=== PATIENT | female | born 1965 | race Caucasian/White ===

== ENCOUNTER 2021-02-08 17:52 | Observation (INO) | payer MEDICARE ==
[2021-02-08 18:19] LABS: CHLORIDE,CL 86 mEq/L (98-106)
[2021-02-08 18:20] LABS: SODIUM,NA 123 mEq/L (136-145)
[2021-02-08 18:44] LABS: CORONAVIRUS COVID-19 NAA NEGATIVE (NEGATIVE)
[2021-02-08] MEDS ORDERED: Albuterol/Ipratropium 3.0-0.5 MG/3 ML Neb Soln NEB ONE (18:46)
--- NOTE | 2021-02-08 18:54 | EDM.PDOC ---
ED HPI GENERAL MEDICAL PROBLEM - General Chief Complaint: Respiratory Problem Stated Complaint: SOB,COUGH Time Seen by Provider: 02/08/21 18:15 Source of Information: Reports: Patient History Limitations: Reports: No Limitations - History of Present Illness INITIAL COMMENTS - FREE TEXT/NARRATIVE: Hillary is 55 year old female who presents to ER with complaints of shortness of breath, fatigue and diarrhea. States started feeling more short of breath and wheezing yesterday. Started taking a Medrol Dose ralph due to history of asthma and does believe that has helped her chest somewhat. Earlier today, started feeling nauseated at times, no appetite and has had diarrhea. She denies any known fever. Has felt lightheaded and diaphoretic at times. Does have dry cough. Has not eaten anything unusual, does not have same symptoms. Was exposed to her grandson last week who had croup. No known covid exposure. Has not had vaccine. Onset: Gradual Duration: Day(s):, Getting Worse Location: Reports: Chest, Abdomen, Generalized Quality: Reports: Ache Severity: Mild Associated Symptoms: Reports: Diaphoresis, Loss of Appetite, Malaise, Nausea/Vomiting, Shortness of Breath. 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: Endometrial Ablation, Endometriosis Musculoskeletal History: Reports: Arthritis, Fibromyalgia, Osteoarthritis - Past Surgical History GI Surgical History: Reports: Appendectomy, Cholecystectomy Female Surgical History: Reports: Hysterectomy Musculoskeletal Surgical History: Reports: Other (See Below) (ankle surgeries) Other Musculoskeletal Surgeries/Procedures:: L)foot surgery Social & Family History - Family History Family Medical History: No Pertinent Family History - Tobacco Use Tobacco Use Status *Q: Current Every Day Tobacco User Years of Tobacco use: 40 Packs/Tins Daily: 1 - Caffeine Use Caffeine Use: Reports: Coffee - Recreational Drug Use Recreational Drug Use: No ED ROS GENERAL - Review of Systems Review Of Systems: See Below Constitutional: Reports: Chills, Malaise, Weakness, Fatigue, Decreased Appetite. Denies: Fever HEENT: Denies: Ear Pain, Sinus Problem, Throat Pain, Vertigo Respiratory: Reports: Shortness of Breath, Cough Cardiovascular: Reports: Lightheadedness. Denies: Chest Pain, Edema Endocrine: Reports: Fatigue GI/Abdominal: Reports: Abdominal Pain, Diarrhea, Nausea. Denies: Black Stool, Bloody Stool, Vomiting : Reports: No Symptoms Musculoskeletal: Reports: No Symptoms Skin: Reports: Diaphoresis Neurological: Reports: Weakness ED EXAM, GENERAL - Physical Exam Exam: See Below Exam Limited By: No Limitations General Appearance: Alert, WD/WN, Mild Distress Ears: Normal External Exam, Normal TMs Nose: Normal Inspection, Normal Mucosa, No Blood Throat/Mouth: Normal Inspection, Normal Oropharynx Head: Normocephalic Neck: Normal Inspection, Supple, Non-Tender Respiratory/Chest: Decreased Breath Sounds Cardiovascular: Regular Rate, Rhythm GI/Abdominal: Normal Bowel Sounds, Soft, Tender (diffuse mild tenderness) Extremities: Normal Inspection, No Pedal Edema Neurological: Alert, Oriented Skin Exam: Diaphoretic Course - Vital Signs Last Recorded V/S: Last Vital Signs Temp 96.8 F L 02/08/21 17:55 Pulse 92 02/08/21 17:55 Resp 20 02/08/21 17:55 BP 142/74 H 02/08/21 17:55 Pulse Ox 97 02/08/21 17:55 - Orders/Labs/Meds Orders: Active Orders 24 hr Category Date Time Status RT Aerosol Therapy [RC] ASDIRECTED Care 02/08/21 18:46 Active Chest 2V [CR] Stat Exams 02/08/21 18:02 Taken Labs: Laboratory Tests 02/08/21 02/08/21 02/08/21 Range/Units 18:11 18:11 18:11 WBC 8.5 (5.0-10.0) 10^3/uL RBC 4.73 (4.00-5.50) 10^6/uL Hgb 14.4 (12.0-16.0) g/dL Hct 40.3 (37.0-47.0) % MCV 85.2 (82.0-94.0) fL MCH 30.4 (27.0-32.0) pg MCHC 35.7 (33.0-38.0) g/dL RDW Coeff of [place]ant[place] 14.1 (11.0-15.0) % Plt Count 396 (150-400) 10^3/uL Neut % (Auto) 78.4 (35-85) % Lymph % (Auto) 14.1 (10-55) % [place] % (Auto) 7.3 (0-16) % Eos % (Auto) 0.1 (0-5) % Baso % (Auto) 0.1 (0-3) % Neut # (Auto) 6.70 (1.80-7.00) 10^3/uL Lymph # (Auto) 1.20 (1.00-4.80) 10^3/uL [place] # (Auto) 0.62 (0.00-0.80) 10^3/uL Eos # (Auto) 0.01 (0.00-0.45) 10^3/uL Baso # (Auto) 0.01 10^3/uL Sodium 123 L* (136-145) mEq/L Potassium 3.9 (3.5-5.0) mEq/L Chloride 86 L (98-106) mEq/L Carbon Dioxide 22 (21-32) mmol/L BUN 5 L D (7-18) mg/dL Creatinine 0.7 (0.6-1.0) mg/dL Est Cr Clr Drug Dosing 64.46 mL/min Estimated GFR (MDRD) > 60 (>=60) mL/min Glucose 141 H D (75-99) mg/dL Calcium 8.6 (8.4-10.1) mg/dL C-Reactive Protein 0.2 (0.2-0.8) mg/dL Urine Color (YELLOW) Urine Appearance (CLEAR) Urine pH (4.5-8.0) Ur Specific [place] (1.003-1.020) Urine Protein (NEGATIVE) mg/dL Urine Glucose (UA) (NEGATIVE) mg/dL Urine Ketones (NEGATIVE) mg/dL Urine Occult Blood (NEGATIVE) Urine Nitrite (NEGATIVE) Urine Bilirubin (NEGATIVE) Urine Urobilinogen (0.2-1.0) EU/dL Ur Leukocyte Esterase (NEGATIVE) Influenza Type A RNA Negative (NEGATIVE) Influenza Type B RNA Negative (NEGATIVE) SARS-CoV-2 RNA (NAIN) Negative (NEGATIVE) 02/08/21 Range/Units 18:21 WBC (5.0-10.0) 10^3/uL RBC (4.00-5.50) 10^6/uL Hgb (12.0-16.0) g/dL Hct (37.0-47.0) % MCV (82.0-94.0) fL MCH (27.0-32.0) pg MCHC (33.0-38.0) g/dL RDW Coeff of [place]antal (11.0-15.0) % Plt Count (150-400) 10^3/uL Neut % (Auto) (35-85) % Lymph % (Auto) (10-55) % [place] % (Auto) (0-16) % Eos % (Auto) (0-5) % Baso % (Auto) (0-3) % Neut # (Auto) (1.80-7.00) 10^3/uL Lymph # (Auto) (1.00-4.80) 10^3/uL [place] # (Auto) (0.00-0.80) 10^3/uL Eos # (Auto) (0.00-0.45) 10^3/uL Baso # (Auto) 10^3/uL Sodium (136-145) mEq/L Potassium (3.5-5.0) mEq/L Chloride (98-106) mEq/L Carbon Dioxide (21-32) mmol/L BUN (7-18) mg/dL Creatinine (0.6-1.0) mg/dL Est Cr Clr Drug Dosing mL/min Estimated GFR (MDRD) (>=60) mL/min Glucose (75-99) mg/dL Calcium (8.4-10.1) mg/dL C-Reactive Protein (0.2-0.8) mg/dL Urine Color Yellow (YELLOW) Urine Appearance Clear (CLEAR) Urine pH 6.0 (4.5-8.0) Ur Specific [place] 1.015 (1.003-1.020) Urine Protein Negative (NEGATIVE) mg/dL Urine Glucose (UA) Negative (NEGATIVE) mg/dL Urine Ketones Negative (NEGATIVE) mg/dL Urine Occult Blood Negative (NEGATIVE) Urine Nitrite Negative (NEGATIVE) Urine Bilirubin Negative (NEGATIVE) Urine Urobilinogen 0.2 (0.2-1.0) EU/dL Ur Leukocyte Esterase Negative (NEGATIVE) Influenza Type A RNA (NEGATIVE) Influenza Type B RNA (NEGATIVE) SARS-CoV-2 RNA (NAIN) (NEGATIVE) Meds: Medications Discontinued Medications Generic Name Dose Route Start Last Admin Trade Name Freq PRN Reason Stop Dose Admin Albuterol/Ipratropium 3 ml 02/08/21 18:46 02/08/21 18:51 Albuterol/Ipratropium 3.0-0.5 Mg/3 Ml Neb Soln NEB 02/08/21 18:47 3 ml ONETIME ONE Administration - Re-Assessments/Exams Free Text/Narrative Re-Assessment/Exam: 02/08/21 19:05 Labs note low sodium at 123. other labs relatively normal. COVID, influenza negative. Has had multiple loose stools in the ER. Will admit for observation, IV normal saline. Collect stool studies. Immodium for diarrhea. Zofran as needed for nausea. Clear liquid diet. Departure - Departure Time of Disposition: 19:07 Disposition: Refer to Observation Condition: Fair Clinical Impression: Hyponatremia, Diarrhea - Discharge Information *PRESCRIPTION DRUG MONITORING PROGRAM REVIEWED*: No *COPY OF PRESCRIPTION DRUG MONITORING REPORT IN PATIENT SCOTT: No Referrals: Nora Michael PA-C [Primary Care Provider] - Forms: ED Department Discharge Sepsis Event Note (ED) - Evaluation Sepsis Screening Result: No Definite Risk - Focused Exam Vital Signs: Vital Signs Temp Pulse Resp BP Pulse Ox 02/08/21 17:55 96.8 F L 92 20 142/74 H 97 - Problem List & Annotations (1) Diarrhea SNOMED Code(s): 08521099 Code(s): R19.7 - DIARRHEA, UNSPECIFIED Status: Acute Priority: High Current Visit: Yes Qualifiers: Diarrhea type: unspecified type Qualified Code(s): R19.7 - Diarrhea, unspecified (2) Hyponatremia SNOMED Code(s): 96953813 Code(s): E87.1 - HYPO-OSMOLALITY AND HYPONATREMIA Status: Acute Priority: High Current Visit: Yes - Problem List Review Problem List Initiated/Reviewed/Updated: Yes - My Orders Last 24 Hours: My Active Orders 02/08/21 18:02 Chest 2V [CR] Stat 02/08/21 18:46 RT Aerosol Therapy [RC] ASDIRECTED - Assessment/Plan Admission H&P: Please use this note as an admission H&P Last 24 Hours: My Active Orders 02/08/21 18:02 Chest 2V [CR] Stat 02/08/21 18:46 RT Aerosol Therapy [RC] ASDIRECTED Assessment:: Hyponatremia Diarrhea Plan: Admit observation. IV normal saline. Collect stool studies. Immodium after for diarrhea. Repeat labs in am.
[2021-02-08] MEDS ORDERED: Sodium Chloride 0.9% 1,000 ML IV ONE (18:59)
[2021-02-08] MEDS ORDERED: Ondansetron 4 MG Tab.DIS PO PRN (19:38)
[2021-02-08] MEDS ORDERED: Oxyquinoline/Emollient 0.3% Oint 1 OZ Canister TOP PRN (19:38)
[2021-02-08] MEDS ORDERED: Ondansetron 4 MG/2 ML SDV IV PRN (19:38)
[2021-02-08] MEDS ORDERED: Loperamide 2 MG Cap PO PRN (19:38)
[2021-02-08] MEDS ORDERED: Sodium Chloride 0.9% 10 ML Syringe FLUSH PRN (19:38)
[2021-02-08] MEDS ORDERED: Acetaminophen 325 MG Tab PO PRN (19:38)
[2021-02-08] MEDS: Sodium Chloride 0.9% 1,000 ML IV SCH (20:13)
[2021-02-08] MEDS: Albuterol/Ipratropium 3.0-0.5 MG/3 ML Neb Soln NEB PRN (21:12)
[2021-02-09] MEDS: Sodium Chloride 0.9% 1,000 ML IV SCH (02:23)
[2021-02-09 07:28] LABS: CHLORIDE,CL 100 mEq/L (98-106); SODIUM,NA 137 mEq/L (136-145)
[2021-02-09 08:02] VITALS: BP 148/91; PULSE 87
[2021-02-09] MEDS: Albuterol/Ipratropium 3.0-0.5 MG/3 ML Neb Soln NEB PRN (08:15)
--- NOTE | 2021-02-09 10:58 | PCM.DCSUM1 ---
Discharge Summary - Hospital Course HPI Initial Comments: Hillary is 55 year old female who presented to ER with complaints of shortness of breath, fatigue and diarrhea yesterday evening. She admitted to feeling more short of breath and wheezing yesterday. Started taking a Medrol Dose ralph due to history of asthma and does believe that has helped her chest somewhat. Earlier yesterday, started feeling nauseated at times, no appetite and has had diarrhea. States she was having frequent episodes of diarrhea. She denied any fevers. Had felt lightheaded and diaphoretic at times. Admits to a dry cough which she states she does have with smoking and asthma. Has been using her albuterol inhaler which has helped as well. Stated she hasn't been eating anything unusual, does not have same symptoms. Was exposed to her grandson last week who had croup. No known covid exposure. Has not had vaccine. - Discharge Data Discharge Date: 02/09/21 Discharge Disposition: Home, Self-Care 01 Condition: Good - Referral to Home Health Primary Care Physician: Nora Michael PA-C - Discharge Diagnosis/Problem(s) (1) Asthma SNOMED Code(s): 527546941 ICD Code: J45.909 - UNSPECIFIED ASTHMA, UNCOMPLICATED Status: Acute Current Visit: Yes Qualifiers: Asthma severity: moderate Asthma persistence: persistent Asthma complication type: uncomplicated Qualified Code(s): J45.40 - Moderate persistent asthma, uncomplicated (2) Diarrhea SNOMED Code(s): 55207440 ICD Code: R19.7 - DIARRHEA, UNSPECIFIED Status: Acute Priority: High Current Visit: Yes Qualifiers: Diarrhea type: unspecified type Qualified Code(s): R19.7 - Diarrhea, unspecified (3) Hyponatremia SNOMED Code(s): 66570140 ICD Code: E87.1 - HYPO-OSMOLALITY AND HYPONATREMIA Status: Acute Priority: High Current Visit: Yes - Patient Instructions Diet: GI Soft/Low Residue/Low Fiber - Discharge Plan *PRESCRIPTION DRUG MONITORING PROGRAM REVIEWED*: No *COPY OF PRESCRIPTION DRUG MONITORING REPORT IN PATIENT SCOTT: No Prescriptions/Med Rec: Albuterol/Ipratropium [DuoNeb 3.0-0.5 MG/3 ML] 3 ml NEB Q4H PRN #30 neb PRN Reason: Shortness Of Breath/wheezing Home Medications: Home Meds Albuterol [Take Home: Albuterol 18 GM, 1 INH Pack] 2 inh INH QID PRN 02/08/21 [ History] Cyclobenzaprine [Flexeril] 5 mg PO DAILY PRN 02/08/21 [History] Albuterol/Ipratropium [DuoNeb 3.0-0.5 MG/3 ML] 3 ml NEB Q4H PRN #30 neb 02/09/21 [Rx] Loperamide [Imodium] 2 mg PO Q4H PRN cap 02/09/21 [Rx] Patient Handouts: Diarrhea, Adult, Hyponatremia Forms: ED Department Discharge Referrals: Diaz Murcia PA-C [Physician Solid Plasterer] - (1 week) - Discharge Summary/Plan Comment DC Time >30 min.: Yes Discharge Summary/Plan Comment: Plan to discharge patient this morning in satisfactory condition. She is currently asymptomatic. Will send home with Lucio Quigley, which we sent to local pharmacy. Discussed into detail d-dimer being 0.57 and whether warrants further evaluation with CTA chest. She states her breathing feels normal and declines scan at this time. I did discuss it would likely be normal and would be done to rule out PE. Advised patient if any worsening of shortness of breath or any concerns at all, she is to return to the ED. - General Info Subjective Update: Patient is doing well this morning. States the diarrhea has significantly improved, only had a couple episodes since last night. States she is feeling a lot better. Admits to no further shortness of breath. STates the neb treatment has helped as well with her history of smoking and asthma. She states they did have her on Advair before but she didn't tolerate it well. States she would like to go home. States she feels almost back to her normal self. - Review of Systems General: Reports: No Symptoms. Denies: Fever, Weakness HEENT: Reports: No Symptoms Pulmonary: Denies: Shortness of Breath, Cough, Wheezing Cardiovascular: Reports: No Symptoms Gastrointestinal: Reports: Diarrhea (much improved). Denies: Abdominal Pain, Nausea, Vomiting Genitourinary: Reports: No Symptoms Musculoskeletal: Reports: No Symptoms Skin: Reports: No Symptoms Neurological: Reports: No Symptoms - Patient Data Vitals - Most Recent: Last Vital Signs Temp 96.4 F L 02/09/21 08:00 Pulse 87 02/09/21 08:00 Resp 20 02/09/21 08:00 BP 148/91 H 02/09/21 08:00 Pulse Ox 94 L 02/09/21 08:00 Weight - Most Recent: 140 lb I&O - Last 24 hours: Intake & Output 02/08/21 02/09/21 02/09/21 22:59 06:59 14:59 Intake Total 925 Balance 925 Lab Results - Last 24 hrs: Laboratory Results - last 24 hr 02/08/21 02/08/21 02/08/21 Range/Units 18:11 18:11 18:11 WBC 8.5 (5.0-10.0) 10^3/uL RBC 4.73 (4.00-5.50) 10^6/uL Hgb 14.4 (12.0-16.0) g/dL Hct 40.3 (37.0-47.0) % MCV 85.2 (82.0-94.0) fL MCH 30.4 (27.0-32.0) pg MCHC 35.7 (33.0-38.0) g/dL RDW Coeff of Chantla 14.1 (11.0-15.0) % Plt Count 396 (150-400) 10^3/uL Neut % (Auto) 78.4 (35-85) % Lymph % (Auto) 14.1 (10-55) % Long % (Auto) 7.3 (0-16) % Eos % (Auto) 0.1 (0-5) % Baso % (Auto) 0.1 (0-3) % Neut # (Auto) 6.70 (1.80-7.00) 10^3/uL Lymph # (Auto) 1.20 (1.00-4.80) 10^3/uL Long # (Auto) 0.62 (0.00-0.80) 10^3/uL Eos # (Auto) 0.01 (0.00-0.45) 10^3/uL Baso # (Auto) 0.01 10^3/uL D-Dimer, Quantitative (0.00-0.50) Sodium 123 L* (136-145) mEq/L Potassium 3.9 (3.5-5.0) mEq/L Chloride 86 L (98-106) mEq/L Carbon Dioxide 22 (21-32) mmol/L BUN 5 L D (7-18) mg/dL Creatinine 0.7 (0.6-1.0) mg/dL Est Cr Clr Drug Dosing 64.46 mL/min Estimated GFR (MDRD) > 60 (>=60) mL/min Glucose 141 H D (75-99) mg/dL Calcium 8.6 (8.4-10.1) mg/dL Total Bilirubin (0.0-1.0) mg/dL AST (15-37) U/L ALT (12-78) U/L Alkaline Phosphatase (46-116) U/L C-Reactive Protein 0.2 (0.2-0.8) mg/dL Total Protein (6.4-8.2) g/dL Albumin (3.4-5.0) g/dL Urine Color (YELLOW) Urine Appearance (CLEAR) Urine pH (4.5-8.0) Ur Specific [place] (1.003-1.020) Urine Protein (NEGATIVE) mg/dL Urine Glucose (UA) (NEGATIVE) mg/dL Urine Ketones (NEGATIVE) mg/dL Urine Occult Blood (NEGATIVE) Urine Nitrite (NEGATIVE) Urine Bilirubin (NEGATIVE) Urine Urobilinogen (0.2-1.0) EU/dL Ur Leukocyte Esterase (NEGATIVE) Influenza Type A RNA Negative (NEGATIVE) Influenza Type B RNA Negative (NEGATIVE) SARS-CoV-2 RNA (NAIN) Negative (NEGATIVE) 02/08/21 02/09/21 02/09/21 Range/Units 18:21 05:11 07:05 WBC 6.0 (5.0-10.0) 10^3/uL RBC 5.04 (4.00-5.50) 10^6/uL Hgb 15.5 (12.0-16.0) g/dL Hct 43.4 (37.0-47.0) % MCV 86.1 (82.0-94.0) fL MCH 30.8 (27.0-32.0) pg MCHC 35.7 (33.0-38.0) g/dL RDW Coeff of Chantal 14.4 (11.0-15.0) % Plt Count 397 (150-400) 10^3/uL Neut % (Auto) 56.2 (35-85) % Lymph % (Auto) 27.3 (10-55) % Long % (Auto) 15.9 (0-16) % Eos % (Auto) 0.3 (0-5) % Baso % (Auto) 0.3 (0-3) % Neut # (Auto) 3.35 (1.80-7.00) 10^3/uL Lymph # (Auto) 1.63 (1.00-4.80) 10^3/uL Long # (Auto) 0.95 H (0.00-0.80) 10^3/uL Eos # (Auto) 0.02 (0.00-0.45) 10^3/uL Baso # (Auto) 0.02 10^3/uL D-Dimer, Quantitative (0.00-0.50) Sodium 137 (136-145) mEq/L Potassium 4.0 (3.5-5.0) mEq/L Chloride 100 (98-106) mEq/L Carbon Dioxide 25 (21-32) mmol/L BUN 2 L D (7-18) mg/dL Creatinine 0.5 L (0.6-1.0) mg/dL Est Cr Clr Drug Dosing 90.24 mL/min Estimated GFR (MDRD) > 60 (>=60) mL/min Glucose 118 H (75-99) mg/dL Calcium 8.1 L (8.4-10.1) mg/dL Total Bilirubin 0.2 (0.0-1.0) mg/dL AST 39 H (15-37) U/L ALT 27 (12-78) U/L Alkaline Phosphatase 59 (46-116) U/L C-Reactive Protein 0.2 (0.2-0.8) mg/dL Total Protein 7.0 (6.4-8.2) g/dL Albumin 3.4 (3.4-5.0) g/dL Urine Color Yellow (YELLOW) Urine Appearance Clear (CLEAR) Urine pH 6.0 (4.5-8.0) Ur Specific [place] 1.015 (1.003-1.020) Urine Protein Negative (NEGATIVE) mg/dL Urine Glucose (UA) Negative (NEGATIVE) mg/dL Urine Ketones Negative (NEGATIVE) mg/dL Urine Occult Blood Negative (NEGATIVE) Urine Nitrite Negative (NEGATIVE) Urine Bilirubin Negative (NEGATIVE) Urine Urobilinogen 0.2 (0.2-1.0) EU/dL Ur Leukocyte Esterase Negative (NEGATIVE) Influenza Type A RNA (NEGATIVE) Influenza Type B RNA (NEGATIVE) SARS-CoV-2 RNA (NAIN) (NEGATIVE) 02/09/21 Range/Units 08:39 WBC (5.0-10.0) 10^3/uL RBC (4.00-5.50) 10^6/uL Hgb (12.0-16.0) g/dL Hct (37.0-47.0) % MCV (82.0-94.0) fL MCH (27.0-32.0) pg MCHC (33.0-38.0) g/dL RDW Coeff of Chantal (11.0-15.0) % Plt Count (150-400) 10^3/uL Neut % (Auto) (35-85) % Lymph % (Auto) (10-55) % Long % (Auto) (0-16) % Eos % (Auto) (0-5) % Baso % (Auto) (0-3) % Neut # (Auto) (1.80-7.00) 10^3/uL Lymph # (Auto) (1.00-4.80) 10^3/uL Long # (Auto) (0.00-0.80) 10^3/uL Eos # (Auto) (0.00-0.45) 10^3/uL Baso # (Auto) 10^3/uL D-Dimer, Quantitative 0.57 H (0.00-0.50) Sodium (136-145) mEq/L Potassium (3.5-5.0) mEq/L Chloride (98-106) mEq/L Carbon Dioxide (21-32) mmol/L BUN (7-18) mg/dL Creatinine (0.6-1.0) mg/dL Est Cr Clr Drug Dosing mL/min Estimated GFR (MDRD) (>=60) mL/min Glucose (75-99) mg/dL Calcium (8.4-10.1) mg/dL Total Bilirubin (0.0-1.0) mg/dL AST (15-37) U/L ALT (12-78) U/L Alkaline Phosphatase (46-116) U/L C-Reactive Protein (0.2-0.8) mg/dL Total Protein (6.4-8.2) g/dL Albumin (3.4-5.0) g/dL Urine Color (YELLOW) Urine Appearance (CLEAR) Urine pH (4.5-8.0) Ur Specific [place] (1.003-1.020) Urine Protein (NEGATIVE) mg/dL Urine Glucose (UA) (NEGATIVE) mg/dL Urine Ketones (NEGATIVE) mg/dL Urine Occult Blood (NEGATIVE) Urine Nitrite (NEGATIVE) Urine Bilirubin (NEGATIVE) Urine Urobilinogen (0.2-1.0) EU/dL Ur Leukocyte Esterase (NEGATIVE) Influenza Type A RNA (NEGATIVE) Influenza Type B RNA (NEGATIVE) SARS-CoV-2 RNA (NAIN) (NEGATIVE) FERNANDEZ Results - Last 24 hrs: Microbiology 02/09/21 04:10 C. difficile DNA Amplification - Final Stool / Feces NEGATIVE CDIFF BY DNA REFERENCE RANGE: NEGATIVE 02/09/21 04:10 Stool for WBCs - Final Stool / Feces NO WBC SEEN REFERENCE RANGE: NO WBC SEEN Med Orders - Current: Current Medications Acetaminophen (Acetaminophen 325 Mg Tab) 650 mg PO Q4H PRN PRN Reason: Pain (Mild 1-3)/fever Albuterol/Ipratropium (Albuterol/Ipratropium 3.0-0.5 Mg/3 Ml Neb Soln) 3 ml NEB Q4H PRN PRN Reason: Shortness Of Breath/wheezing Last Admin: 02/09/21 08:15 Dose: 3 ml Documented by: Enoxaparin Sodium (Enoxaparin 40 Mg/0.4 Ml Syringe) 40 mg SUBCUT DAILY@1200 JOSE Sodium Chloride (Normal Saline) 1,000 mls @ 150 mls/hr IV ASDIRECTED [facility] Last Admin: 02/09/21 02:23 Dose: 150 mls/hr Documented by: Loperamide HCl (Loperamide 2 Mg Cap) 2 mg PO Q4H PRN PRN Reason: Diarrhea Ondansetron HCl (Ondansetron 4 Mg Tab.Dis) 4 mg PO Q4H PRN PRN Reason: nausea, able to take PO Ondansetron HCl (Ondansetron 4 Mg/2 Ml Sdv) 4 mg IV Q4H PRN PRN Reason: Nausea/Vomiting Oxyquinoline Sulfate (Oxyquinoline/Emollient 0.3% Oint 1 Oz Canister) 0 oz TOP ASDIRECTED PRN PRN Reason: Wound Care Last Admin: 02/08/21 21:23 Dose: 1 applic Documented by: Sodium Chloride (Sodium Chloride 0.9% 10 Ml Syringe) 10 ml FLUSH ASDIRECTED PRN PRN Reason: Keep Vein Open Discontinued Medications Albuterol/Ipratropium (Albuterol/Ipratropium 3.0-0.5 Mg/3 Ml Neb Soln) 3 ml NEB ONETIME ONE Stop: 02/08/21 18:47 Last Admin: 02/08/21 18:51 Dose: 3 ml Documented by: Sodium Chloride (Normal Saline) 1,000 mls @ 999 mls/hr IV .BOLUS ONE Stop: 02/08/21 19:59 Last Admin: 02/08/21 19:05 Dose: 999 mls/hr Documented by: - Exam General: Reports: Alert, Oriented, Cooperative, No Acute Distress Lungs: Reports: Clear to Auscultation, Normal Respiratory Effort Cardiovascular: Reports: Regular Rate, Regular Rhythm GI/Abdominal Exam: Normal Bowel Sounds, Soft, No Distention, No Mass Extremities: Normal Inspection, No Pedal Edema Skin: Reports: Warm, Dry, Intact Neurological: Reports: No New Focal Deficit Psy/Mental Status: Reports: Alert, Normal Affect, Normal Mood
[2021-02-09] MEDS ORDERED: Enoxaparin 40 MG/0.4 ML Syringe SUBCUT SCH (12:00)
== END 2021-02-09 12:00 | disposition home or self-care (01) ==
LOC: CC.ED 17:52 → CC.MS 19:11 → UNDOADMOB 19:33 → CC.MS 19:33
PROVIDERS: ADMIT Physician Assistant Medical; ATTEND Family Medicine
DX: J45.40 Moderate persistent asthma, uncomplicated (principal); R19.7 Diarrhea, unspecified; F17.210 Nicotine dependence, cigarettes, uncomplicated; E87.1 Hypo-osmolality and hyponatremia; Z20.822 Contact with and (suspected) exposure to COVID-19; Z79.899 Other long term (current) drug therapy; Z90.49 Acquired absence of other specified parts of digestive tract
CPT/HCPCS: 0240U; 36415; 71046; 80048; 80053; 81003; 85025; 85379; 86140; 87045; 87046; 87493; 89055; 94640; 99285-25; A9270-GY; J7030; J7620-GY

== ENCOUNTER 2021-02-09 18:05 | Inpatient (IN) | payer MEDICARE ==
--- NOTE | 2021-02-09 18:40 | EDM.PDOC ---
ED HPI GENERAL MEDICAL PROBLEM - General Chief Complaint: General Stated Complaint: flushed,sob,diarrhea Time Seen by Provider: 02/09/21 18:34 Source of Information: Reports: Patient, RN History Limitations: Reports: No Limitations - History of Present Illness INITIAL COMMENTS - FREE TEXT/NARRATIVE: Pt was discharged from the hospital this AM. Had been admitted overnight for h yponatremia and was given IV fluids and then was normal this morning and went home. This afternoon she started having diarrhea again and 3 total that were watery. She did take immodium for it and has not had any since. Stomach has been upset and has not ate today but no vomiting. She has been trying to drink poweraid and is able to keep some down. She states that this evening she started to "feel weak and awful" and felt like she might pass out. Has been under a lot of stress also recently and is concerned that some of her symptoms are from anxiety. She is complaining of SOB. Sats on arrival are in high 90's on room air. VS are stable. No cough. No chest pain. Onset: Gradual Onset Date: 02/08/21 Location: Reports: Abdomen, Generalized Associated Symptoms: Reports: Fever/Chills (States that she is hot one minute and then will have chills.) - Related Data Allergies Allergy/AdvReac Type Severity Reaction Status Date / Time No Known Allergies Allergy Verified 02/09/21 18:52 Home Meds: Home Meds Albuterol [Take Home: Albuterol 18 GM, 1 INH Pack] 2 inh INH QID PRN 02/08/21 [History] Cyclobenzaprine [Flexeril] 5 mg PO DAILY PRN 02/08/21 [History] Albuterol/Ipratropium [DuoNeb 3.0-0.5 MG/3 ML] 3 ml NEB Q4H PRN #30 neb 02/09/21 [Rx] Loperamide [Imodium] 2 mg PO ASDIRECTED PRN 02/09/21 [History] Past Medical History Respiratory History: Reports: Asthma 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: Endometrial Ablation, Endometriosis Musculoskeletal History: Reports: Arthritis, Fibromyalgia, Osteoarthritis - Past Surgical History GI Surgical History: Reports: Appendectomy, Cholecystectomy Female Surgical History: Reports: Hysterectomy Musculoskeletal Surgical History: Reports: Other (See Below) (ankle surgeries) Social & Family History - Family History Family Medical History: No Pertinent Family History - Tobacco Use Tobacco Use Status *Q: Current Every Day Tobacco User Years of Tobacco use: 40 Packs/Tins Daily: 1 - Caffeine Use Caffeine Use: Reports: Coffee - Recreational Drug Use Recreational Drug Use: Yes Recreational Drug Type: Reports: Marijuana/Hashish - Living Situation & Occupation Living situation: Reports: , with Spouse Occupation: Employed ED ROS GENERAL - Review of Systems Review Of Systems: See Below Constitutional: Reports: Weakness. Denies: Fever, Chills HEENT: Reports: No Symptoms Respiratory: Reports: Shortness of Breath. Denies: Cough Cardiovascular: Reports: No Symptoms GI/Abdominal: Reports: Diarrhea, Decreased Appetite : Reports: No Symptoms Musculoskeletal: Reports: No Symptoms Skin: Reports: No Symptoms Neurological: Reports: No Symptoms Psychiatric: Reports: Anxiety ED EXAM, GENERAL - Physical Exam Exam: See Below Exam Limited By: No Limitations General Appearance: Alert, WD/WN, Mild Distress Ears: Normal External Exam, Normal Canal, Normal TMs Throat/Mouth: Normal Oropharynx, Normal Voice, No Airway Compromise Head: Atraumatic, Normocephalic Neck: Normal Inspection, Supple, Non-Tender, Full Range of Motion Respiratory/Chest: No Respiratory Distress, Lungs Clear, Normal Breath Sounds Cardiovascular: Regular Rate, Rhythm, No Edema GI/Abdominal: Normal Bowel Sounds, Soft, Non-Tender Extremities: Normal Inspection, No Pedal Edema, Normal Capillary Refill Neurological: Alert, Oriented Skin Exam: Warm, Dry, Intact Course - Vital Signs Last Recorded V/S: Last Vital Signs Temp 96.1 F L 02/09/21 18:29 Pulse 103 H 02/09/21 18:29 Resp 24 H 02/09/21 18:29 BP 104/79 02/09/21 18:29 Pulse Ox 96 02/09/21 18:29 - Orders/Labs/Meds Orders: Active Orders 24 hr Category Date Time Status Chest 2V [CR] Stat Exams 02/09/21 18:17 Taken UA W/MICROSCOPIC [URIN] Stat Lab 02/09/21 18:17 Ordered Labs: Laboratory Tests 02/09/21 02/09/21 02/09/21 Range/Units 18:25 18:25 18:25 WBC 12.0 H (5.0-10.0) 10^3/uL RBC 4.57 (4.00-5.50) 10^6/uL Hgb 14.2 (12.0-16.0) g/dL Hct 39.3 (37.0-47.0) % MCV 86.0 (82.0-94.0) fL MCH 31.1 (27.0-32.0) pg MCHC 36.1 (33.0-38.0) g/dL RDW Coeff of Chantal 14.2 (11.0-15.0) % Plt Count 382 (150-400) 10^3/uL Neut % (Auto) 67.5 (35-85) % Lymph % (Auto) 22.5 (10-55) % Newton % (Auto) 9.4 (0-16) % Eos % (Auto) 0.3 (0-5) % Baso % (Auto) 0.3 (0-3) % Neut # (Auto) 8.07 H (1.80-7.00) 10^3/uL Lymph # (Auto) 2.69 (1.00-4.80) 10^3/uL Newton # (Auto) 1.12 H (0.00-0.80) 10^3/uL Eos # (Auto) 0.04 (0.00-0.45) 10^3/uL Baso # (Auto) 0.03 10^3/uL D-Dimer, Quantitative 0.43 (0.00-0.50) Sodium 122 L* (136-145) mEq/L Potassium 3.6 (3.5-5.0) mEq/L Chloride 87 L (98-106) mEq/L Carbon Dioxide 19 L (21-32) mmol/L BUN 3 L (7-18) mg/dL Creatinine 0.7 (0.6-1.0) mg/dL Est Cr Clr Drug Dosing 64.46 mL/min Estimated GFR (MDRD) > 60 (>=60) mL/min Glucose 139 H (75-99) mg/dL Lactic Acid (0.4-2.0) mmol/L Calcium 8.2 L (8.4-10.1) mg/dL Total Bilirubin 0.3 (0.0-1.0) mg/dL AST 80 H (15-37) U/L ALT 48 (12-78) U/L Alkaline Phosphatase 67 (46-116) U/L C-Reactive Protein < 0.2 L (0.2-0.8) mg/dL Total Protein 6.9 (6.4-8.2) g/dL Albumin 3.5 (3.4-5.0) g/dL 02/09/21 Range/Units 18:25 WBC (5.0-10.0) 10^3/uL RBC (4.00-5.50) 10^6/uL Hgb (12.0-16.0) g/dL Hct (37.0-47.0) % MCV (82.0-94.0) fL MCH (27.0-32.0) pg MCHC (33.0-38.0) g/dL RDW Coeff of Chantal (11.0-15.0) % Plt Count (150-400) 10^3/uL Neut % (Auto) (35-85) % Lymph % (Auto) (10-55) % Newton % (Auto) (0-16) % Eos % (Auto) (0-5) % Baso % (Auto) (0-3) % Neut # (Auto) (1.80-7.00) 10^3/uL Lymph # (Auto) (1.00-4.80) 10^3/uL Newton # (Auto) (0.00-0.80) 10^3/uL Eos # (Auto) (0.00-0.45) 10^3/uL Baso # (Auto) 10^3/uL D-Dimer, Quantitative (0.00-0.50) Sodium (136-145) mEq/L Potassium (3.5-5.0) mEq/L Chloride (98-106) mEq/L Carbon Dioxide (21-32) mmol/L BUN (7-18) mg/dL Creatinine (0.6-1.0) mg/dL Est Cr Clr Drug Dosing mL/min Estimated GFR (MDRD) (>=60) mL/min Glucose (75-99) mg/dL Lactic Acid 1.8 (0.4-2.0) mmol/L Calcium (8.4-10.1) mg/dL Total Bilirubin (0.0-1.0) mg/dL AST (15-37) U/L ALT (12-78) U/L Alkaline Phosphatase (46-116) U/L C-Reactive Protein (0.2-0.8) mg/dL Total Protein (6.4-8.2) g/dL Albumin (3.4-5.0) g/dL - Re-Assessments/Exams Free Text/Narrative Re-Assessment/Exam: 02/09/21 19:04 Discussed low sodium results with pt and . Will admit observation for NS and repeat labs in the AM. Departure - Departure Time of Disposition: 19:06 Disposition: Refer to Observation Condition: Good Clinical Impression: Hyponatremia - Discharge Information *PRESCRIPTION DRUG MONITORING PROGRAM REVIEWED*: Not Applicable *COPY OF PRESCRIPTION DRUG MONITORING REPORT IN PATIENT SCOTT: Not Applicable Referrals: Nora Michael PA-C [Primary Care Provider] - Forms: ED Department Discharge Sepsis Event Note (ED) - Evaluation Sepsis Screening Result: No Definite Risk - Focused Exam Vital Signs: Vital Signs Temp Pulse Resp BP Pulse Ox 02/09/21 18:29 96.1 F L 103 H 24 H 104/79 96 - My Orders Last 24 Hours: My Active Orders 02/09/21 18:17 Chest 2V [CR] Stat UA W/MICROSCOPIC [URIN] Stat - Assessment/Plan Admission H&P: Please use this note as an admission H&P Last 24 Hours: My Active Orders 02/09/21 18:17 Chest 2V [CR] Stat UA W/MICROSCOPIC [URIN] Stat Plan: Will admit observation for IV saline and repeat labs in the AM. Immodium as needed for any lose stools and zofran if nausea
[2021-02-09 18:51] LABS: CHLORIDE,CL 87 mEq/L (98-106); SODIUM,NA 122 mEq/L (136-145)
[2021-02-09] MEDS ORDERED: Ondansetron 4 MG Tab.DIS PO PRN (19:23)
[2021-02-09] MEDS ORDERED: Loperamide 2 MG Cap PO PRN (19:28)
[2021-02-09] MEDS ORDERED: ALBUTEROL INH PRN (19:28)
[2021-02-09] MEDS ORDERED: Sodium Chloride 0.9% 1,000 ML IV ONE (19:30)
[2021-02-09] MEDS: Sodium Chloride 0.9% 1,000 ML IV SCH (20:47)
[2021-02-09] MEDS: LORazepam 0.5 MG Tab PO PRN (20:47)
[2021-02-09] MEDS: Albuterol/Ipratropium 3.0-0.5 MG/3 ML Neb Soln NEB PRN (20:51)
[2021-02-10] MEDS: Albuterol/Ipratropium 3.0-0.5 MG/3 ML Neb Soln NEB PRN ×3 (03:25→20:15)
[2021-02-10] MEDS: Sodium Chloride 0.9% 1,000 ML IV SCH (03:25)
[2021-02-10 07:34] LABS: CHLORIDE,CL 93 mEq/L (98-106); SODIUM,NA 127 mEq/L (136-145)
[2021-02-10] MEDS: LORazepam 0.5 MG Tab PO PRN ×3 (08:10→20:15)
[2021-02-10] MEDS ORDERED: Sodium Chloride 0.9% 1,000 ML IV SCH (09:45)
[2021-02-10] MEDS ORDERED: Furosemide 20 MG/2 ML VIAL IVPUSH ONE (13:47)
[2021-02-10] MEDS: Oxyquinoline/Emollient 0.3% Oint 1 OZ Canister TOP PRN (22:06)
[2021-02-11] MEDS: Albuterol/Ipratropium 3.0-0.5 MG/3 ML Neb Soln NEB PRN ×2 (06:43→20:04)
[2021-02-11] MEDS: LORazepam 0.5 MG Tab PO PRN ×2 (06:46→20:04)
--- NOTE | 2021-02-11 07:58 | PCM.PN ---
- General Info Date of Service: 02/10/21 Admission Dx/Problem (Free Text): Hyponatremia Acute Diarrhea Shortness of breath Subjective Update: Hillary is a 55 yo female who had presented to the ED yesterday evening with complaints of shortness of breath. Patient was discharged from the hospital yest erd morning. She was admitted the day prior for hyponatremia and was given IV fluids overnight. Sodium had corrected and diarrhea had subsided. Patient was feeling well when discharged home. She admits after being discharged she felt well until the afternoon when she started having diarrhea again. She did take immodium for the diarrhea which had helped. She was increasing fluids and had been trying to drink poweraide. She felt she was getting weaker, short of breath and thought she was going to pass out. She verbalized she has been under a lot of stress and is concerned that some of her symptoms are from her anxiety. Patient states she continues to feel short of breath this morning. Is anxious this morning. States she doesn't understand why her sodium was low again. She is worried something is wrong with her. She states if she tries to lay down she will get short of breath. Has dry cough. Functional Status: Reports: Pain Controlled, Tolerating Diet, Ambulating, Urinating - Review of Systems General: Reports: Weakness, Fatigue HEENT: Reports: No Symptoms Pulmonary: Reports: Shortness of Breath, Cough Cardiovascular: Reports: Dyspnea on Exertion. Denies: Chest Pain Gastrointestinal: Reports: No Symptoms Genitourinary: Reports: No Symptoms Musculoskeletal: Reports: No Symptoms Skin: Reports: No Symptoms Neurological: Reports: No Symptoms Psychiatric: Reports: Anxiety - Patient Data Vitals - Most Recent: Last Vital Signs Temp 97 F 02/11/21 04:00 Pulse 95 02/11/21 04:00 Resp 20 02/11/21 04:00 BP 131/91 H 02/11/21 04:00 Pulse Ox 95 02/11/21 04:00 Weight - Most Recent: 149 lb 1.6 oz I&O - Last 24 Hours: Intake & Output 02/10/21 02/11/21 02/11/21 22:59 06:59 14:59 Intake Total 1500 400 Output Total 2500 400 Balance -1000 0 Lab Results Last 24 Hours: Laboratory Results - last 24 hr 02/10/21 Range/Units 07:00 NT-Pro-B Natriuret Pep 8455 H (0-1000) pg/mL Med Orders - Current: Current Medications Acetaminophen (Acetaminophen 325 Mg Tab) 650 mg PO Q4H PRN PRN Reason: Pain (Mild 1-3)/fever Albuterol/Ipratropium (Albuterol/Ipratropium 3.0-0.5 Mg/3 Ml Neb Soln) 3 ml NEB Q4H PRN PRN Reason: Shortness Of Breath/wheezing Last Admin: 02/11/21 06:43 Dose: 3 ml Documented by: Loperamide HCl (Loperamide 2 Mg Cap) 2 mg PO ASDIRECTED PRN PRN Reason: Diarrhea Lorazepam (Lorazepam 0.5 Mg Tab) 0.5 mg PO Q6H PRN PRN Reason: Anxiety Last Admin: 02/11/21 06:46 Dose: 0.5 mg Documented by: Non-Formulary Medication (Albuterol) 2 inh INH QID PRN PRN Reason: Shortness of Breath Ondansetron HCl (Ondansetron 4 Mg Tab.Dis) 4 mg PO Q4H PRN PRN Reason: nausea, able to take PO Last Admin: 02/09/21 19:41 Dose: 4 mg Documented by: Oxyquinoline Sulfate (Oxyquinoline/Emollient 0.3% Oint 1 Oz Canister) 1 oz TOP BID PRN PRN Reason: after diarrhea stool Last Admin: 02/10/21 22:06 Dose: 1 applic Documented by: Discontinued Medications Furosemide (Furosemide 20 Mg/2 Ml Vial) 20 mg IVPUSH ONETIME ONE Stop: 02/10/21 13:48 Last Admin: 02/10/21 14:08 Dose: 20 mg Documented by: Sodium Chloride (Normal Saline) 1,000 mls @ 999 mls/hr IV ONETIME ONE Stop: 02/09/21 20:30 Last Admin: 02/09/21 19:40 Dose: 999 mls/hr Documented by: Sodium Chloride (Normal Saline) 1,000 mls @ 150 mls/hr IV CONTINUOUS JOSE Last Admin: 02/10/21 03:25 Dose: 150 mls/hr Documented by: Sodium Chloride (Normal Saline) 1,000 mls @ 125 mls/hr IV ASDIRECTED JOSE Last Admin: 02/10/21 10:00 Dose: 125 mls/hr Documented by: - Exam Quality Assessment: Supplemental Oxygen General: Alert, Oriented, Cooperative Lungs: Decreased Breath Sounds, Crackles Cardiovascular: Regular Rate, Regular Rhythm, No Murmurs GI/Abdominal Exam: Normal Bowel Sounds, Soft, Non-Tender, No Mass Extremities: Pedal Edema (left worse than right, trace bilaterally) Skin: Warm, Dry, Intact Neurological: No New Focal Deficit Psy/Mental Status: Alert, Anxious - Patient Data Lab Results Last 24 hrs: Laboratory Results - last 24 hr 02/10/21 Range/Units 07:00 NT-Pro-B Natriuret Pep 8455 H (0-1000) pg/mL Result Diagrams: 02/09/21 18:25 02/10/21 06:55 Sepsis Event Note - Evaluation Sepsis Screening Result: No Definite Risk - Focused Exam Vital Signs: Vital Signs Temp Pulse Resp BP Pulse Ox 02/11/21 04:00 97 F 95 20 131/91 H 95 02/11/21 00:00 97.5 F 90 20 127/87 95 02/10/21 20:00 97.5 F 92 20 129/88 95 - Problem List & Annotations (1) Hyponatremia SNOMED Code(s): 40597763 Code(s): E87.1 - HYPO-OSMOLALITY AND HYPONATREMIA Status: Acute Priority: High Current Visit: No (2) CHF (congestive heart failure) SNOMED Code(s): 22504247 Code(s): I50.9 - HEART FAILURE, UNSPECIFIED Status: Acute Current Visit: Yes Qualifiers: Heart failure type: unspecified Heart failure chronicity: acute Qualified Code(s): I50.9 - Heart failure, unspecified (3) Diarrhea SNOMED Code(s): 08448864 Code(s): R19.7 - DIARRHEA, UNSPECIFIED Status: Acute Priority: High Current Visit: No Qualifiers: Diarrhea type: unspecified type Qualified Code(s): R19.7 - Diarrhea, unspecified - Problem List Review Problem List Initiated/Reviewed/Updated: Yes - My Orders Last 24 Hours: My Active Orders 02/10/21 12:59 Echo Comp wo Cont [US] Routine 02/10/21 Dinner Fluid Restriction [DIET] 02/11/21 05:11 BASIC METABOLIC PANEL,BMP [CHEM] AM CBC WITH AUTO DIFF [HEME] AM MAGNESIUM [CHEM] AM PRO B-TYPE NATRIUR PEPT,BNPPRO [CHEM] Routine - Plan Plan:: Potassium has slightly improved to 127 this morning. D/t shortness of breath, orthopnea and crackles at bases, ProBNP ordered, which was elevated to 8455. 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 Consulted with Dr. Middleton who did recommend fluids restrictions to 1500ml's daily. Will give IV Lasix today. Will closely monitor. Discussed patient with weekend on-call provider.
[2021-02-11 08:17] LABS: CHLORIDE,CL 91 mEq/L (98-106); SODIUM,NA 127 mEq/L (136-145)
[2021-02-11] MEDS: Furosemide 40 MG/4 ML VIAL IVPUSH SCH ×2 (10:25→20:03)
--- NOTE | 2021-02-11 10:52 | PCM.PN ---
- General Info Date of Service: 02/11/21 Functional Status: Reports: Pain Controlled, Tolerating Diet, Ambulating, Urinating - Review of Systems General: Reports: Weakness, Fatigue HEENT: Reports: No Symptoms Pulmonary: Reports: Shortness of Breath Cardiovascular: Reports: Dyspnea on Exertion, Edema Gastrointestinal: Reports: No Symptoms Genitourinary: Reports: No Symptoms Musculoskeletal: Reports: No Symptoms Skin: Reports: No Symptoms Neurological: Reports: No Symptoms Psychiatric: Reports: No Symptoms - Patient Data Vitals - Most Recent: Last Vital Signs Temp 97 F 02/11/21 04:00 Pulse 95 02/11/21 04:00 Resp 20 02/11/21 04:00 BP 131/91 H 02/11/21 04:00 Pulse Ox 95 02/11/21 04:00 Weight - Most Recent: 149 lb 1.6 oz I&O - Last 24 Hours: Intake & Output 02/10/21 02/11/21 02/11/21 22:59 06:59 14:59 Intake Total 1500 400 Output Total 2500 400 Balance -1000 0 Lab Results Last 24 Hours: Laboratory Results - last 24 hr 02/10/21 02/11/21 02/11/21 Range/Units 07:00 05:11 05:11 WBC 10.6 H (5.0-10.0) 10^3/uL RBC 4.49 (4.00-5.50) 10^6/uL Hgb 13.5 (12.0-16.0) g/dL Hct 38.7 (37.0-47.0) % MCV 86.2 (82.0-94.0) fL MCH 30.1 (27.0-32.0) pg MCHC 34.9 (33.0-38.0) g/dL RDW Coeff of Chantal 14.0 (11.0-15.0) % Plt Count 354 (150-400) 10^3/uL Neut % (Auto) 68.2 (35-85) % Lymph % (Auto) 22.1 (10-55) % Finney % (Auto) 9.1 (0-16) % Eos % (Auto) 0.4 (0-5) % Baso % (Auto) 0.2 (0-3) % Neut # (Auto) 7.23 H (1.80-7.00) 10^3/uL Lymph # (Auto) 2.34 (1.00-4.80) 10^3/uL Finney # (Auto) 0.96 H (0.00-0.80) 10^3/uL Eos # (Auto) 0.04 (0.00-0.45) 10^3/uL Baso # (Auto) 0.02 10^3/uL Sodium 127 L (136-145) mEq/L Potassium 3.3 L (3.5-5.0) mEq/L Chloride 91 L (98-106) mEq/L Carbon Dioxide 26 (21-32) mmol/L BUN 4 L (7-18) mg/dL Creatinine 0.6 (0.6-1.0) mg/dL Est Cr Clr Drug Dosing 111.78 mL/min Estimated GFR (MDRD) > 60 (>=60) mL/min Glucose 117 H (75-99) mg/dL Calcium 7.9 L (8.4-10.1) mg/dL Magnesium 1.8 (1.8-2.4) mg/dL NT-Pro-B Natriuret Pep 8455 H 68006 H (0-1000) pg/mL Med Orders - Current: Current Medications Acetaminophen (Acetaminophen 325 Mg Tab) 650 mg PO Q4H PRN PRN Reason: Pain (Mild 1-3)/fever Albuterol/Ipratropium (Albuterol/Ipratropium 3.0-0.5 Mg/3 Ml Neb Soln) 3 ml NEB Q4H PRN PRN Reason: Shortness Of Breath/wheezing Last Admin: 02/11/21 06:43 Dose: 3 ml Documented by: Furosemide (Furosemide 40 Mg/4 Ml Vial) 40 mg IVPUSH BID JOSE Last Admin: 02/11/21 10:25 Dose: 40 mg Documented by: Loperamide HCl (Loperamide 2 Mg Cap) 2 mg PO ASDIRECTED PRN PRN Reason: Diarrhea Lorazepam (Lorazepam 0.5 Mg Tab) 0.5 mg PO Q6H PRN PRN Reason: Anxiety Last Admin: 02/11/21 06:46 Dose: 0.5 mg Documented by: Non-Formulary Medication (Albuterol) 2 inh INH QID PRN PRN Reason: Shortness of Breath Ondansetron HCl (Ondansetron 4 Mg Tab.Dis) 4 mg PO Q4H PRN PRN Reason: nausea, able to take PO Last Admin: 02/09/21 19:41 Dose: 4 mg Documented by: Oxyquinoline Sulfate (Oxyquinoline/Emollient 0.3% Oint 1 Oz Canister) 1 oz TOP BID PRN PRN Reason: after diarrhea stool Last Admin: 02/10/21 22:06 Dose: 1 applic Documented by: Discontinued Medications Furosemide (Furosemide 20 Mg/2 Ml Vial) 20 mg IVPUSH ONETIME ONE Stop: 02/10/21 13:48 Last Admin: 02/10/21 14:08 Dose: 20 mg Documented by: Sodium Chloride (Normal Saline) 1,000 mls @ 999 mls/hr IV ONETIME ONE Stop: 02/09/21 20:30 Last Admin: 02/09/21 19:40 Dose: 999 mls/hr Documented by: Sodium Chloride (Normal Saline) 1,000 mls @ 150 mls/hr IV CONTINUOUS JOSE Last Admin: 02/10/21 03:25 Dose: 150 mls/hr Documented by: Sodium Chloride (Normal Saline) 1,000 mls @ 125 mls/hr IV ASDIRECTED JOSE Last Admin: 02/10/21 10:00 Dose: 125 mls/hr Documented by: - Exam General: Alert, Oriented, Cooperative, No Acute Distress Neck: Supple, Trachea Midline, No JVD Lungs: Normal Respiratory Effort, Crackles (Bilateral bases), Wheezing (mild inspiratory wheeze bilateral upper lobes) Cardiovascular: Regular Rate, Regular Rhythm GI/Abdominal Exam: Soft, Non-Tender Back Exam: Normal Inspection Extremities: Normal Inspection, Normal Range of Motion, Non-Tender, Normal Capillary Refill, Pedal Edema (+1 BLE) Peripheral Pulses: 2+: Radial (L), Radial (R), Posterior Tibial (L), Posterior Tibial (R) Skin: Warm, Dry, Intact Neurological: No New Focal Deficit, Normal Gait, Normal Speech Psy/Mental Status: Alert, Normal Affect, Normal Mood - Patient Data Lab Results Last 24 hrs: Laboratory Results - last 24 hr 02/10/21 02/11/21 02/11/21 Range/Units 07:00 05:11 05:11 WBC 10.6 H (5.0-10.0) 10^3/uL RBC 4.49 (4.00-5.50) 10^6/uL Hgb 13.5 (12.0-16.0) g/dL Hct 38.7 (37.0-47.0) % MCV 86.2 (82.0-94.0) fL MCH 30.1 (27.0-32.0) pg MCHC 34.9 (33.0-38.0) g/dL RDW Coeff of Chantal 14.0 (11.0-15.0) % Plt Count 354 (150-400) 10^3/uL Neut % (Auto) 68.2 (35-85) % Lymph % (Auto) 22.1 (10-55) % Finney % (Auto) 9.1 (0-16) % Eos % (Auto) 0.4 (0-5) % Baso % (Auto) 0.2 (0-3) % Neut # (Auto) 7.23 H (1.80-7.00) 10^3/uL Lymph # (Auto) 2.34 (1.00-4.80) 10^3/uL Finney # (Auto) 0.96 H (0.00-0.80) 10^3/uL Eos # (Auto) 0.04 (0.00-0.45) 10^3/uL Baso # (Auto) 0.02 10^3/uL Sodium 127 L (136-145) mEq/L Potassium 3.3 L (3.5-5.0) mEq/L Chloride 91 L (98-106) mEq/L Carbon Dioxide 26 (21-32) mmol/L BUN 4 L (7-18) mg/dL Creatinine 0.6 (0.6-1.0) mg/dL Est Cr Clr Drug Dosing 111.78 mL/min Estimated GFR (MDRD) > 60 (>=60) mL/min Glucose 117 H (75-99) mg/dL Calcium 7.9 L (8.4-10.1) mg/dL Magnesium 1.8 (1.8-2.4) mg/dL NT-Pro-B Natriuret Pep 8455 H 41067 H (0-1000) pg/mL Result Diagrams: 02/11/21 05:11 02/11/21 05:11 Sepsis Event Note - Evaluation Sepsis Screening Result: No Definite Risk - Focused Exam Vital Signs: Vital Signs Temp Pulse Resp BP Pulse Ox 02/11/21 04:00 97 F 95 20 131/91 H 95 02/11/21 00:00 97.5 F 90 20 127/87 95 - Problem List Review Problem List Initiated/Reviewed/Updated: Yes - My Orders Last 24 Hours: My Active Orders 02/10/21 20:58 Oxyquinoline/Emollient [Bag Alsey Oint] 1 oz TOP BID PRN 02/11/21 09:43 Chest 2V [CR] Routine 02/11/21 10:00 Furosemide [Lasix] 40 mg IVPUSH BID 02/11/21 13:00 SODIUM,NA [CHEM] Routine 02/12/21 05:00 BASIC METABOLIC PANEL,BMP [CHEM] DAILY CBC WITH AUTO DIFF [HEME] DAILY 02/13/21 05:00 BASIC METABOLIC PANEL,BMP [CHEM] DAILY CBC WITH AUTO DIFF [HEME] DAILY - Plan Plan:: Potassium has slightly improved to 127 this morning. D/t shortness of breath, orthopnea and crackles at bases, ProBNP ordered, which was elevated to 8455. Will get echocardiogram on Saturday as no instrument repair technician available today. Consulted with Dr. Middleton who did recommend fluids restrictions to 1500ml's daily. Will give IV Lasix today. Will closely monitor. Discussed patient with weekend on-call provider. 02/11/21 0900am The patient today reports she feels a little better, but reports still short of breath and fatigued. She reports her shortness of breath is worse with walking to the bathroom. She reports she has a history of asthma, but reports this does not feel like her asthma. Patient on the sodium was 122, yesterday 127, today 127. Potassium yesterday 3.8, today 3.3. Chloride yesterday 93, today 91. BNP yesterday 8455[place] [address]. CXR ordered today. She got 1 dose of Lasix yesterday and put on fluid restrictions. Will continue her fluid restrictions. Will increase her Lasix to 40mg BID. I called and discussed patient case with Dr. Bazan at [facility]. He reports to increase the Lasix like have done. Reports to continue fluid restrictions. Reports to draw sodium levels every 6 hours. If sodium improves, continue plan and admit. If sodium wo rsens, then will need to be transferred. Requested osmolality serum, but both serum and urine are both send out and wont go out until Saturday. Will continue admit.
[2021-02-11] MEDS: Ibuprofen 200 MG Tab PO PRN (17:04)
[2021-02-11] MEDS: Oxyquinoline/Emollient 0.3% Oint 1 OZ Canister TOP PRN (20:05)
[2021-02-11] MEDS: Acetaminophen 325 MG Tab PO PRN (21:44)
[2021-02-12] MEDS: Ibuprofen 200 MG Tab PO PRN ×3 (01:22→18:45)
[2021-02-12] MEDS: Acetaminophen 325 MG Tab PO PRN (05:54)
[2021-02-12 07:47] LABS: CHLORIDE,CL 92 mEq/L (98-106); SODIUM,NA 132 mEq/L (136-145)
[2021-02-12] MEDS: Furosemide 40 MG/4 ML VIAL IVPUSH SCH ×2 (07:49→20:42)
[2021-02-12] MEDS: Potassium Chloride 10 MEQ Tab.ER PO SCH ×2 (08:09→16:53)
--- NOTE | 2021-02-12 09:24 | PCM.PN ---
- General Info Date of Service: 02/12/21 Functional Status: Reports: Pain Controlled, Tolerating Diet, Ambulating, Urinating - Review of Systems General: Reports: No Symptoms HEENT: Reports: No Symptoms Pulmonary: Reports: Shortness of Breath (much improved today), Cough Cardiovascular: Reports: No Symptoms Gastrointestinal: Reports: No Symptoms Genitourinary: Reports: No Symptoms Musculoskeletal: Reports: Joint Pain (patient reports she has chronic OA. No change from baseline per patient. ) Skin: Reports: No Symptoms Neurological: Reports: No Symptoms Psychiatric: Reports: No Symptoms - Patient Data Vitals - Most Recent: Last Vital Signs Temp 98 F 02/12/21 07:46 Pulse 87 02/12/21 07:46 Resp 18 02/12/21 07:46 BP 119/84 02/12/21 07:46 Pulse Ox 85 L 02/12/21 07:46 Weight - Most Recent: 149 lb 1.6 oz I&O - Last 24 Hours: Intake & Output 02/11/21 02/12/21 02/12/21 22:59 06:59 14:59 Intake Total 1200 300 500 Output Total 4600 800 1400 Balance -3400 -500 -900 Lab Results Last 24 Hours: Laboratory Results - last 24 hr 02/11/21 02/11/21 02/11/21 Range/Units 12:00 17:55 23:45 WBC (5.0-10.0) 10^3/uL RBC (4.00-5.50) 10^6/uL Hgb (12.0-16.0) g/dL Hct (37.0-47.0) % MCV (82.0-94.0) fL MCH (27.0-32.0) pg MCHC (33.0-38.0) g/dL RDW Coeff of Chantal (11.0-15.0) % Plt Count (150-400) 10^3/uL Neut % (Auto) (35-85) % Lymph % (Auto) (10-55) % [place] % (Auto) (0-16) % Eos % (Auto) (0-5) % Baso % (Auto) (0-3) % Neut # (Auto) (1.80-7.00) 10^3/uL Lymph # (Auto) (1.00-4.80) 10^3/uL [place] # (Auto) (0.00-0.80) 10^3/uL Eos # (Auto) (0.00-0.45) 10^3/uL Baso # (Auto) 10^3/uL Sodium 128 L 131 L 133 L (136-145) mEq/L Potassium (3.5-5.0) mEq/L Chloride (98-106) mEq/L Carbon Dioxide (21-32) mmol/L BUN (7-18) mg/dL Creatinine (0.6-1.0) mg/dL Est Cr Clr Drug Dosing mL/min Estimated GFR (MDRD) (>=60) mL/min Glucose (75-99) mg/dL Calcium (8.4-10.1) mg/dL NT-Pro-B Natriuret Pep (0-1000) pg/mL 02/12/21 02/12/21 Range/Units 05:00 05:00 WBC 9.2 (5.0-10.0) 10^3/uL RBC 4.66 (4.00-5.50) 10^6/uL Hgb 14.0 (12.0-16.0) g/dL Hct 39.7 (37.0-47.0) % MCV 85.2 (82.0-94.0) fL MCH 30.0 (27.0-32.0) pg MCHC 35.3 (33.0-38.0) g/dL RDW Coeff of Chantal 14.0 (11.0-15.0) % Plt Count 372 (150-400) 10^3/uL Neut % (Auto) 60.1 (35-85) % Lymph % (Auto) 28.5 (10-55) % [place] % (Auto) 9.7 (0-16) % Eos % (Auto) 1.6 (0-5) % Baso % (Auto) 0.1 (0-3) % Neut # (Auto) 5.49 (1.80-7.00) 10^3/uL Lymph # (Auto) 2.61 (1.00-4.80) 10^3/uL [place] # (Auto) 0.89 H (0.00-0.80) 10^3/uL Eos # (Auto) 0.15 (0.00-0.45) 10^3/uL Baso # (Auto) 0.01 10^3/uL Sodium 132 L (136-145) mEq/L Potassium 3.1 L (3.5-5.0) mEq/L Chloride 92 L (98-106) mEq/L Carbon Dioxide 31 (21-32) mmol/L BUN 6 L (7-18) mg/dL Creatinine 0.7 (0.6-1.0) mg/dL Est Cr Clr Drug Dosing 64.46 mL/min Estimated GFR (MDRD) > 60 (>=60) mL/min Glucose 105 H (75-99) mg/dL Calcium 8.0 L (8.4-10.1) mg/dL NT-Pro-B Natriuret Pep 60349 H (0-1000) pg/mL Med Orders - Current: Current Medications Acetaminophen (Acetaminophen 325 Mg Tab) 650 mg PO Q4H PRN PRN Reason: Pain (Mild 1-3)/fever Last Admin: 02/12/21 05:54 Dose: 650 mg Documented by: Albuterol/Ipratropium (Albuterol/Ipratropium 3.0-0.5 Mg/3 Ml Neb Soln) 3 ml NEB Q4H PRN PRN Reason: Shortness Of Breath/wheezing Last Admin: 02/11/21 20:04 Dose: 3 ml Documented by: Furosemide (Furosemide 40 Mg/4 Ml Vial) 40 mg IVPUSH BID JOSE Last Admin: 02/12/21 07:49 Dose: 40 mg Documented by: Ibuprofen (Ibuprofen 200 Mg Tab) 800 mg PO Q8H PRN PRN Reason: Pain Last Admin: 02/12/21 01:22 Dose: 800 mg Documented by: Loperamide HCl (Loperamide 2 Mg Cap) 2 mg PO ASDIRECTED PRN PRN Reason: Diarrhea Lorazepam (Lorazepam 0.5 Mg Tab) 0.5 mg PO Q6H PRN PRN Reason: Anxiety Last Admin: 02/11/21 20:04 Dose: 0.5 mg Documented by: Non-Formulary Medication (Albuterol) 2 inh INH QID PRN PRN Reason: Shortness of Breath Ondansetron HCl (Ondansetron 4 Mg Tab.Dis) 4 mg PO Q4H PRN PRN Reason: nausea, able to take PO Last Admin: 02/09/21 19:41 Dose: 4 mg Documented by: Oxyquinoline Sulfate (Oxyquinoline/Emollient 0.3% Oint 1 Oz Canister) 1 oz TOP BID PRN PRN Reason: after diarrhea stool Last Admin: 02/11/21 20:05 Dose: 1 applic Documented by: Potassium Chloride (Potassium Chloride 10 Meq Tab.Er) 40 meq PO BIDMEALS JOSE Last Admin: 02/12/21 08:09 Dose: 40 meq Documented by: Discontinued Medications Furosemide (Furosemide 20 Mg/2 Ml Vial) 20 mg IVPUSH ONETIME ONE Stop: 02/10/21 13:48 Last Admin: 02/10/21 14:08 Dose: 20 mg Documented by: Sodium Chloride (Normal Saline) 1,000 mls @ 999 mls/hr IV ONETIME ONE Stop: 02/09/21 20:30 Last Admin: 02/09/21 19:40 Dose: 999 mls/hr Documented by: Sodium Chloride (Normal Saline) 1,000 mls @ 150 mls/hr IV CONTINUOUS JOSE Last Admin: 02/10/21 03:25 Dose: 150 mls/hr Documented by: Sodium Chloride (Normal Saline) 1,000 mls @ 125 mls/hr IV ASDIRECTED JOSE Last Admin: 02/10/21 10:00 Dose: 125 mls/hr Documented by: - Exam General: Alert, Oriented, Cooperative, No Acute Distress Neck: Supple, Trachea Midline, No JVD Lungs: Clear to Auscultation, Normal Respiratory Effort, Wheezing (mild bialteral upper inspiratory wheezes, improved from yesterday. ) GI/Abdominal Exam: Soft, Non-Tender Back Exam: Normal Inspection, Full Range of Motion Extremities: Normal Inspection, Normal Range of Motion, Non-Tender, No Pedal Edema, Normal Capillary Refill Peripheral Pulses: 2+: Radial (L), Radial (R), Posterior Tibial (L), Posterior Tibial (R), Dorsalis Pedis (L), Dorsalis Pedis (R) Skin: Warm, Dry, Intact Neurological: No New Focal Deficit, Normal Gait, Normal Speech, Cranial Nerves Intact Psy/Mental Status: Alert, Normal Mood - Patient Data Lab Results Last 24 hrs: Laboratory Results - last 24 hr 02/11/21 02/11/21 02/11/21 Range/Units 12:00 17:55 23:45 WBC (5.0-10.0) 10^3/uL RBC (4.00-5.50) 10^6/uL Hgb (12.0-16.0) g/dL Hct (37.0-47.0) % MCV (82.0-94.0) fL MCH (27.0-32.0) pg MCHC (33.0-38.0) g/dL RDW Coeff of Chantal (11.0-15.0) % Plt Count (150-400) 10^3/uL Neut % (Auto) (35-85) % Lymph % (Auto) (10-55) % [place] % (Auto) (0-16) % Eos % (Auto) (0-5) % Baso % (Auto) (0-3) % Neut # (Auto) (1.80-7.00) 10^3/uL Lymph # (Auto) (1.00-4.80) 10^3/uL [place] # (Auto) (0.00-0.80) 10^3/uL Eos # (Auto) (0.00-0.45) 10^3/uL Baso # (Auto) 10^3/uL Sodium 128 L 131 L 133 L (136-145) mEq/L Potassium (3.5-5.0) mEq/L Chloride (98-106) mEq/L Carbon Dioxide (21-32) mmol/L BUN (7-18) mg/dL Creatinine (0.6-1.0) mg/dL Est Cr Clr Drug Dosing mL/min Estimated GFR (MDRD) (>=60) mL/min Glucose (75-99) mg/dL Calcium (8.4-10.1) mg/dL NT-Pro-B Natriuret Pep (0-1000) pg/mL 02/12/21 02/12/21 Range/Units 05:00 05:00 WBC 9.2 (5.0-10.0) 10^3/uL RBC 4.66 (4.00-5.50) 10^6/uL Hgb 14.0 (12.0-16.0) g/dL Hct 39.7 (37.0-47.0) % MCV 85.2 (82.0-94.0) fL MCH 30.0 (27.0-32.0) pg MCHC 35.3 (33.0-38.0) g/dL RDW Coeff of Chantal 14.0 (11.0-15.0) % Plt Count 372 (150-400) 10^3/uL Neut % (Auto) 60.1 (35-85) % Lymph % (Auto) 28.5 (10-55) % [place] % (Auto) 9.7 (0-16) % Eos % (Auto) 1.6 (0-5) % Baso % (Auto) 0.1 (0-3) % Neut # (Auto) 5.49 (1.80-7.00) 10^3/uL Lymph # (Auto) 2.61 (1.00-4.80) 10^3/uL [place] # (Auto) 0.89 H (0.00-0.80) 10^3/uL Eos # (Auto) 0.15 (0.00-0.45) 10^3/uL Baso # (Auto) 0.01 10^3/uL Sodium 132 L (136-145) mEq/L Potassium 3.1 L (3.5-5.0) mEq/L Chloride 92 L (98-106) mEq/L Carbon Dioxide 31 (21-32) mmol/L BUN 6 L (7-18) mg/dL Creatinine 0.7 (0.6-1.0) mg/dL Est Cr Clr Drug Dosing 64.46 mL/min Estimated GFR (MDRD) > 60 (>=60) mL/min Glucose 105 H (75-99) mg/dL Calcium 8.0 L (8.4-10.1) mg/dL NT-Pro-B Natriuret Pep 93758 H (0-1000) pg/mL Result Diagrams: 02/12/21 05:00 02/12/21 05:00 Sepsis Event Note - Evaluation Sepsis Screening Result: No Definite Risk - Focused Exam Vital Signs: Vital Signs Temp Pulse Resp BP Pulse Ox 02/12/21 07:46 98 F 87 18 119/84 85 L 02/12/21 04:00 97.3 F 89 18 118/84 95 02/11/21 23:36 98.1 F 92 18 107/80 98 - Problem List Review Problem List Initiated/Reviewed/Updated: Yes - My Orders Last 24 Hours: My Active Orders 02/11/21 09:43 Chest 2V [CR] Routine 02/11/21 10:00 Furosemide [Lasix] 40 mg IVPUSH BID 02/11/21 16:50 Ibuprofen [Motrin] 800 mg PO Q8H PRN 02/12/21 08:02 Potassium Chloride [Klor-Con 10] 40 meq PO BIDMEALS 02/13/21 05:00 BASIC METABOLIC PANEL,BMP [CHEM] DAILY CBC WITH AUTO DIFF [HEME] DAILY - Plan Plan:: Potassium has slightly improved to 127 this morning. D/t shortness of breath, orthopnea and crackles at bases, ProBNP ordered, which was elevated to 8455. Will get echocardiogram on Saturday as no cardiopulmonary technician and eeg tech available today. Consulted with Dr. Middleton who did recommend fluids restrictions to 1500ml's daily. Will give IV Lasix today. Will closely monitor. Discussed patient with weekend on-call provider. 02/11/21 0900am The patient today reports she feels a little better, but reports still short of breath and fatigued. She reports her shortness of breath is worse with walking to the bathroom. She reports she has a history of asthma, but reports this does not feel like her asthma. Patient on the sodium was 122, yesterday 127, today 127. Potassium yesterday 3.8, today 3.3. Chloride yesterday 93, today 91. BNP yesterday 8455[place] [address]. CXR ordered today. She got 1 dose of Lasix yesterday and put on fluid restrictions. Will continue her fluid restrictions. Will increase her Lasix to 40mg BID. I called and discussed patient case with Dr. Bazan at [facility]. He reports to increase the Lasix like have done. Reports to continue fluid restrictions. Reports to draw sodium levels every 6 hours. If sodium improves, continue plan and admit. If sodium worsens, then will need to be transferred. Requested osmolality serum, but both serum and urine are both send out and wont go out until Saturday. Will continue admit. 02/12/21 08:25am The patient today reports that her shortness of breath is much improved today. She reports she continues to have her chronic nonproductive cough, but reports it even feels better today. She reports history of asthma and smoker. 1ppd. Labs today are Na 132, Potassium 3.1, BNP 14,057. I have added potassium oral to be given. Will continue the lasix and fluid restrictions today. Will continue with echo tomorrow. Plan to discharge home if Na remains elevated, with a normal echo. Then close f/u with PCP for further exploration if Na keeps falling.
[2021-02-12] MEDS: Albuterol/Ipratropium 3.0-0.5 MG/3 ML Neb Soln NEB PRN (15:08)
[2021-02-12] MEDS: LORazepam 0.5 MG Tab PO PRN (20:53)
[2021-02-13] MEDS: Albuterol/Ipratropium 3.0-0.5 MG/3 ML Neb Soln NEB PRN (06:41)
[2021-02-13 07:49] LABS: CHLORIDE,CL 94 mEq/L (98-106); SODIUM,NA 134 mEq/L (136-145)
[2021-02-13] MEDS: Potassium Chloride 10 MEQ Tab.ER PO SCH ×2 (08:07→17:30)
[2021-02-13] MEDS: Furosemide 40 MG/4 ML VIAL IVPUSH SCH ×2 (08:07→20:12)
[2021-02-13] MEDS: Lisinopril 5 MG Tab PO SCH (11:12)
--- NOTE | 2021-02-13 12:01 | PN ---
DATE: 02/13/2021 S: Ms. Flores is a 55-year-old female who was originally admitted to our facility for hyponatremia associated with a gastroenteritis type infection. She went home for a brief time, came back feeling weak and tired, and again was given IV fluids for replenishment. She ultimately last Saturday started to get short of breath, showed signs of volume overload, and her proBNP was elevated at around 9000. She was started on appropriate cares. Fluids were stopped. She was given Lasix and monitored. Over the last 3 to 4 days, she has had improvement in her shortness of breath and weakness. Her sodium levels have come up from a low of 122 on her admit to now 134. She is getting IV Lasix. She is yet to be started on an HARINI inhibitor or beta [place]. Her echocardiogram was at 11:30 this morning. O: VITAL SIGNS: Her vital signs have been stable. BP today is 112/85, pulse 84, and saturations 95% on 2 L. GENERAL: She is pleasant, alert, and cooperative. Does not appear in any distress. HEENT: Grossly benign. NECK: Veins are nondistended. LUNGS: Her lung sounds are slightly diminished with some minimal basilar crackles. CARDIAC: Tones appear regular. ABDOMEN: Soft. EXTREMITIES: Scant ankle edema. ASSESSMENT: 1. NEW-ONSET CONGESTIVE HEART FAILURE, QUESTIONABLE ETIOLOGY. 2. HISTORY OF CHRONIC OBSTRUCTIVE PULMONARY DISEASE. 3. HYPONATREMIA, IMPROVED. P: For now, I am going to try to switch her over to oral Lasix as clinically she looks markedly better. Her proBNP has continued to climb, but we will keep a close eye for now. Blood pressures are a little on the low end, but I will try to start her on a low dose of an HARINI. Echocardiogram should present us with significant information. She will ultimately need Cardiology followup, but she has done very well with diuresis and fluid restrictions. Plan, home tomorrow with outpatient Cardiology followup in the near future. LEI/LASHA /[id number]
[2021-02-14] MEDS: Ibuprofen 200 MG Tab PO PRN ×2 (00:09→23:45)
[2021-02-14] MEDS: Carvedilol 3.125 MG Tab PO SCH ×2 (08:15→18:12)
[2021-02-14] MEDS: Lisinopril 5 MG Tab PO SCH (08:15)
[2021-02-14] MEDS: Potassium Chloride 10 MEQ Tab.ER PO SCH (08:15)
[2021-02-14] MEDS: Furosemide 40 MG Tab PO SCH (08:15)
--- NOTE | 2021-02-14 11:23 | PN ---
DATE: 02/14/2021 S: Ms. Flores continues to do better. She is breathing much easier. Peripheral edema is improved and over the last 48 hours, she says she feels much stronger. We did receive her echocardiogram report yesterday and she does have an ejection fraction of 45% with some global hypokinesis. Yesterday, I initiated oral lisinopril. O: VITAL SIGNS: Her vital signs have been stable. On exam today, BP 124/72, pulse 76, and saturations 94% on room air. HEENT: Grossly unchanged. NECK: Veins remain nondistended. LUNGS: Lung sounds are diminished, but I hear minimal basilar crackles at this point. CARDIAC: Tones are regular. ABDOMEN: Soft. EXTREMITIES: No edema seen. ASSESSMENT: 1. ACUTE SYSTOLIC CONGESTIVE HEART FAILURE. 2. HISTORY OF CHRONIC OBSTRUCTIVE PULMONARY DISEASE. 3. HYPONATREMIA, IMPROVED. P: We will initiate low-dose Coreg 3.125 mg b.i.d. today to go along with her 5 mg of lisinopril. I am going to switch her to oral Lasix. A call will be put in to Dr. Nagel for outpatient Cardiology followup. It was initially planned on patient going home today, but I would like to monitor her vital signs with the initiation of Coreg today and hopefully home tomorrow morning. LEI/LASHA /[id number]
[2021-02-14] MEDS: Albuterol/Ipratropium 3.0-0.5 MG/3 ML Neb Soln NEB PRN (14:57)
[2021-02-14] MEDS: Formoterol/Mometasone 200-5 MCG 8.8 GM Inhaler IH SCH (19:40)
[2021-02-14] MEDS ORDERED: Aspirin 81 MG Tab.Chew PO SCH (20:00)
[2021-02-15] MEDS: Ibuprofen 200 MG Tab PO PRN (06:41)
[2021-02-15] MEDS: Lisinopril 5 MG Tab PO SCH (07:29)
[2021-02-15] MEDS: Carvedilol 3.125 MG Tab PO SCH (07:29)
[2021-02-15] MEDS: Furosemide 40 MG Tab PO SCH (07:29)
[2021-02-15] MEDS: Formoterol/Mometasone 200-5 MCG 8.8 GM Inhaler IH SCH (07:30)
[2021-02-15] MEDS ORDERED: Potassium Chloride 10 MEQ Tab.ER PO SCH (08:00)
--- NOTE | 2021-02-15 21:17 | PCM.DCSUM1 ---
Discharge Summary - Hospital Course Free Text/Narrative:: Hillary is a 55 year old female who returned back to ER after being discharged in the am. Had been admitted for hyponatremia, got IV fluids and was feeling good, thus discharged home. Started having diarrhea again and was watery in nature. Did take Immodium which helped and tolerating powerade however began to feel very weak again. Clyde faint. Questions if symptoms are related to anxiety as gets short of breath easily. VS stable. Sodium again low at 122. ADmitted for sodium replacement. Diagnosis: Stroke: No Modified [place] Scale: No Symptoms at All Modified [place] Scale Score: 0 - Discharge Data Discharge Date: 02/15/21 Discharge Disposition: Home, Self-Care 01 Condition: Good - Referral to Home Health Primary Care Physician: Nora Michael PA-C - Discharge Diagnosis/Problem(s) (1) CHF (congestive heart failure) SNOMED Code(s): 95191305 ICD Code: I50.9 - HEART FAILURE, UNSPECIFIED Status: Acute Priority: High Qualifiers: Heart failure type: unspecified Heart failure chronicity: acute Qualified Code(s): I50.9 - Heart failure, unspecified (2) Hyponatremia SNOMED Code(s): 31467191 ICD Code: E87.1 - HYPO-OSMOLALITY AND HYPONATREMIA Status: Acute (3) Asthma SNOMED Code(s): 227005112 ICD Code: J45.909 - UNSPECIFIED ASTHMA, UNCOMPLICATED Status: Acute Priority: Medium Qualifiers: Asthma severity: moderate Asthma persistence: persistent Asthma complication type: uncomplicated Qualified Code(s): J45.40 - Moderate persistent asthma, uncomplicated - Patient Summary/Data Complications: none Hospital Course: Patient is feeling better. Sodium is improved at 134. Patient was given IV fluids to correct sodium and resulted in acute heart failure[place] [address]. Started on IV lasix with good diuresis. Shortness of breath improved after diuresed. Lung sounds are clear, edema improved. Echocardiogram done, shows ejection fraction at 45%. Was started on Lisinopril 5 mg daily and Coreg 3.125 BID. Switched to oral Lasix. Will arrange for cardiolyte stress test and follow up with Dr. Nagel. - Patient Instructions Diet: Heart Healthy Diet, Fluid Restriction (2000 ml) Activity: As Tolerated - Discharge Plan *PRESCRIPTION DRUG MONITORING PROGRAM REVIEWED*: Not Applicable *COPY OF PRESCRIPTION DRUG MONITORING REPORT IN PATIENT SCOTT: Not Applicable Prescriptions/Med Rec: Aspirin 81 mg PO BEDTIME #30 tab.chew carvediloL [Coreg] 3.125 mg PO BIDMEALS #60 tablet Mometasone/Formoterol [Dulera 200-5 MCG] 2 puff IH BIDRT #1 inhaler Potassium Chloride [Klor-Con 10] 20 meq PO DAILY #30 tab.er Furosemide [Lasix] 40 mg PO DAILY #30 tablet lisinopriL [Prinivil] 5 mg PO DAILY #30 tablet Home Medications: Home Meds Cyclobenzaprine [Flexeril] 5 mg PO DAILY PRN 02/08/21 [History] Albuterol/Ipratropium [DuoNeb 3.0-0.5 MG/3 ML] 3 ml NEB Q4H PRN #30 neb 02/09/21 [Rx] Loperamide [Imodium] 2 mg PO ASDIRECTED PRN 02/09/21 [History] Albuterol [Ventolin HFA] 2 puff INH QID PRN 02/14/21 [History] Aspirin 81 mg PO BEDTIME #30 tab.chew 02/15/21 [Rx] Furosemide [Lasix] 40 mg PO DAILY #30 tablet 02/15/21 [Rx] Mometasone/Formoterol [Dulera 200-5 MCG] 2 puff IH BIDRT #1 inhaler 02/15/21 [Rx] Potassium Chloride [Klor-Con 10] 20 meq PO DAILY #30 tab.er 02/15/21 [Rx] carvediloL [Coreg] 3.125 mg PO BIDMEALS #60 tablet 02/15/21 [Rx] lisinopriL [Prinivil] 5 mg PO DAILY #30 tablet 02/15/21 [Rx] Patient Handouts: Heart Failure, Self Care, Hyponatremia, Fluid Restriction, Heart Failure, Diagnosis, Leky-bi-Aojv Forms: ED Department Discharge Referrals: Krishna Nagel MD [Ordering Only Provider] - (you will be notified of date and time of appointment with Dr. Nagel in [place]) Shaquille Middleton MD [ED Physician] - (Follow up with Dr. Middleton in 10 days ) - Discharge Summary/Plan Comment DC Time >30 min.: No - General Info Date of Service: 02/15/21 Admission Dx/Problem (Free Text: Hyponatremia Acute Diarrhea Shortness of breath Functional Status: Reports: Pain Controlled, Tolerating Diet, Ambulating - Review of Systems General: Reports: Weakness, Fatigue HEENT: Reports: No Symptoms Pulmonary: Reports: Shortness of Breath. Denies: Cough Cardiovascular: Reports: Edema. Denies: Chest Pain Gastrointestinal: Denies: Abdominal Pain, Nausea, Vomiting Genitourinary: Reports: No Symptoms Musculoskeletal: Reports: No Symptoms Skin: Reports: No Symptoms Neurological: Reports: Weakness - Patient Data Vitals - Most Recent: Last Vital Signs Temp 98.2 F 02/15/21 07:30 Pulse 84 02/15/21 07:30 Resp 18 02/15/21 07:30 BP 122/86 02/15/21 07:30 Pulse Ox 96 02/15/21 07:30 Weight - Most Recent: 143 lb 11.2 oz I&O - Last 24 hours: Intake & Output 02/15/21 02/15/21 02/15/21 06:59 14:59 22:59 Intake Total 500 Output Total 600 Balance -100 Med Orders - Current: Current Medications Discontinued Medications Acetaminophen (Acetaminophen 325 Mg Tab) 650 mg PO Q4H PRN PRN Reason: Pain (Mild 1-3)/fever Last Admin: 02/12/21 05:54 Dose: 650 mg Documented by: Albuterol/Ipratropium (Albuterol/Ipratropium 3.0-0.5 Mg/3 Ml Neb Soln) 3 ml NEB Q4H PRN PRN Reason: Shortness Of Breath/wheezing Last Admin: 02/14/21 14:57 Dose: 3 ml Documented by: Aspirin (Aspirin 81 Mg Tab.Chew) 81 mg PO BEDTIME [facility] Last Admin: 02/14/21 19:39 Dose: 81 mg Documented by: Carvedilol (Carvedilol 3.125 Mg Tab) 3.125 mg PO BIDMEALS [facility] [place] Last Admin: 02/15/21 07:29 Dose: 3.125 mg Documented by: Furosemide (Furosemide 20 Mg/2 Ml Vial) 20 mg IVPUSH ONETIME ONE Stop: 02/10/21 13:48 Last Admin: 02/10/21 14:08 Dose: 20 mg Documented by: Furosemide (Furosemide 40 Mg/4 Ml Vial) 40 mg IVPUSH BID [facility] [place] Last Admin: 02/13/21 20:12 Dose: 40 mg Documented by: Furosemide (Furosemide 40 Mg Tab) 40 mg PO DAILY [facility] [place] Last Admin: 02/15/21 07:29 Dose: 40 mg Documented by: Sodium Chloride (Normal Saline) 1,000 mls @ 999 mls/hr IV ONETIME ONE Stop: 02/09/21 20:30 Last Admin: 02/09/21 19:40 Dose: 999 mls/hr Documented by: Sodium Chloride (Normal Saline) 1,000 mls @ 150 mls/hr IV CONTINUOUS [facility] [place] Last Admin: 02/10/21 03:25 Dose: 150 mls/hr Documented by: Sodium Chloride (Normal Saline) 1,000 mls @ 125 mls/hr IV ASDIRECTED [facility] [place] Last Admin: 02/10/21 10:00 Dose: 125 mls/hr Documented by: Ibuprofen (Ibuprofen 200 Mg Tab) 800 mg PO Q8H PRN PRN Reason: Pain Last Admin: 02/15/21 06:41 Dose: 800 mg Documented by: Lisinopril (Lisinopril 5 Mg Tab) 5 mg PO DAILY [facility] [place] Last Admin: 02/15/21 07:29 Dose: 5 mg Documented by: Loperamide HCl (Loperamide 2 Mg Cap) 2 mg PO ASDIRECTED PRN PRN Reason: Diarrhea Lorazepam (Lorazepam 0.5 Mg Tab) 0.5 mg PO Q6H PRN PRN Reason: Anxiety Last Admin: 02/12/21 20:53 Dose: 0.5 mg Documented by: Mometasone Furoate/Formoterol Fumar (Formoterol/Mometasone 200-5 Mcg 8.8 Gm Inhaler) 2 puff IH BIDRT [facility] [place] Last Admin: 02/15/21 07:30 Dose: 2 puff Documented by: Non-Formulary Medication (Albuterol) 2 inh INH QID PRN PRN Reason: Shortness of Breath Ondansetron HCl (Ondansetron 4 Mg Tab.Dis) 4 mg PO Q4H PRN PRN Reason: nausea, able to take PO Last Admin: 02/09/21 19:41 Dose: 4 mg Documented by: Oxyquinoline Sulfate (Oxyquinoline/Emollient 0.3% Oint 1 Oz Canister) 1 oz TOP BID PRN PRN Reason: after diarrhea stool Last Admin: 02/11/21 20:05 Dose: 1 applic Documented by: Potassium Chloride (Potassium Chloride 10 Meq Tab.Er) 40 meq PO BIDMEALS [facility] [place] Last Admin: 02/14/21 08:15 Dose: 40 meq Documented by: Potassium Chloride (Potassium Chloride 10 Meq Tab.Er) 20 meq PO DAILY [facility] [place] Last Admin: 02/15/21 07:29 Dose: 20 meq Documented by: - Exam General: Reports: Alert, Oriented HEENT: Reports: Mucous Membr. Moist/[place] Neck: Reports: Supple Lungs: Reports: Clear to Auscultation, Normal Respiratory Effort Cardiovascular: Reports: Regular Rate, Regular Rhythm GI/Abdominal Exam: Normal Bowel Sounds, Soft, Non-Tender Extremities: Normal Inspection, Pedal Edema Skin: Reports: Warm, Dry Neurological: Reports: No New Focal Deficit
== END 2021-02-15 11:00 | disposition home or self-care (01) | DRG 640 ==
LOC: CC.ED 18:05 → CC.MS 19:22 → UNDOADMOB 19:22 → CC.MS 19:23 → OBSVTOIN 02-13 14:33
PROVIDERS: ADMIT Physician Assistant Medical; ATTEND Family Medicine
DX: E87.1 Hypo-osmolality and hyponatremia (principal); I50.21 Acute systolic (congestive) heart failure; M19.90 Unspecified osteoarthritis, unspecified site; M79.7 Fibromyalgia; J45.40 Moderate persistent asthma, uncomplicated; R19.7 Diarrhea, unspecified; K52.9 Noninfective gastroenteritis and colitis, unspecified; Z90.49 Acquired absence of other specified parts of digestive tract; Z90.710 Acquired absence of both cervix and uterus; F17.210 Nicotine dependence, cigarettes, uncomplicated; Z79.899 Other long term (current) drug therapy; I50.9 Heart failure, unspecified; J44.9 Chronic obstructive pulmonary disease, unspecified; Z20.828 Contact with and (suspected) exposure to other viral communicable diseases
CPT/HCPCS: 0240U; 36415; 71046; 80048; 80053; 81003; 83605; 83735; 83880; 84295; 85025; 85379; 86140; 87045; 87046; 87493; 89055; 93306; 94640; 96374; 96376; 99217; 99220; 99225; 99285-25; A9270-GY; G0378; J1940; J7030; J7620-GY